=== PATIENT | female | born 1965 | race Caucasian/White ===

== ENCOUNTER 2025-07-14 19:19 | Emergency (ER) | payer OTHER | END 2025-07-14 21:17 | disposition home or self-care (01) | LOC: JP.ED 19:19 | DX: S01.21XA Laceration without foreign body of nose, initial encounter (principal); F17.200 Nicotine dependence, unspecified, uncomplicated; Z79.890 Hormone replacement therapy; W22.8XXA Striking against or struck by other objects, initial encounter | CPT/HCPCS: 99282 ==